=== PATIENT | female | born 1955 | race Caucasian/White ===

== ENCOUNTER 2025-06-13 19:25 | Emergency (ER) | payer MEDICARE, OTHER, SELFPAY ==
[2025-06-13 19:28] VITALS: BP 152/87
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
[2025-06-13] MEDS: TYLENOL 650 MG PO (20:50)
== END 2025-06-13 20:54 | disposition home or self-care (01) ==
LOC: EMR 19:25
PROVIDERS: EMERGENCY PHYSICIAN Student in an Organized Health Care Education/Training Program
DX: M25.562 Pain in left knee (principal); M25.561 Pain in right knee; Z59.00 Homelessness unspecified; I10 Essential (primary) hypertension; E78.00 Pure hypercholesterolemia, unspecified; F17.200 Nicotine dependence, unspecified, uncomplicated
CPT/HCPCS: 99283; 73560